=== PATIENT | female | born 1980 | race Caucasian/White ===

== ENCOUNTER 2017-05-04 19:32 | Emergency (ER) | payer OTHER ==
[~2017-05-04] VITALS: Ht 172.7 cm; Wt 70.3 kg
[~2017-05-04 19:32] MED LIST: ADDERALL 10 MG10 MG PO; ADDERALL 20 MG20 MG PO; AMBIEN10 MG PO; ANTACID200 MG PO; ATROVENT HFA12.9 GM; ATROVENT HFA12.9 GM INH; AUGMENTIN 875-1 EACH PO; BENZONATATE100 MG PO; CLINDAMYCIN HC150 MG PO; DOK100 MG PO; DULERA 200 MCG/13 GM; EVEKEO PO; FLOVENT HFA12 G1 INH; FOLIC ACID1 MG PO; LEVAQUIN500 MG PO; LINZESS PO; LITHIUM CARBON300 M2 PO; LORATADINE10 MG PO; METRONIDAZOLE500 MG PO; MIRALAX17 GM PO; NEXIUM40 MG PO; NICODERM CQ1 EAC1 TOP; OMEPRAZOLE40 MG PO; PENTASA500 MG PO; PERCOCET 10-321 EACH PO; PREDNISONE20 MG PO; PROAIR HFA INH8.5 GM; PROMETHAZINE HC25 M1 PO; PROPRANOLOL HCL40 MG PO; PROTONIX40 MG/ML PO; QUETIAPINE FUM100 MG PO; RANITIDINE HCL300 MG PO; RELISTOR PO; SUCRALFATE1 G/10 ML NG; SULFAMETHOXAZO1 EAC1 PO; TRILEPTAL300 MG PO; TYLENOL WITH C1 EACH PO; VALIUM10 MG PO; VALTREX500 MG PO; Z.0.NEXIUM20 MG; ZOFRAN ODT4 MG PO; [UNRECOGNIZED DRUG - OTHER] PO
--- OUTSIDE RECORDS SUMMARY | 2017-05-04 19:35 | XMS REPORT ---
Author Author [facility] Address Unknown Phone Unavailable Care Team Providers Care Member Services Coordinator Name Role Phone DEXTER MCCOY Unavailable Unavailable Problems This patient has no known problems. Allergies, Adverse Reactions, Alerts This patient has no known allergies or adverse reactions. Medications This patient has no known medications. Encounters Start Date/Time End Date/Time Encounter Type Admission Type Attending Clinicians Care Facility Care Department Encounter ID 2017-01-22 03:08:30 2017-01-22 03:08:30 Emergency [facility] [id number] 2017-01-21 23:54:05 2017-01-21 23:54:05 Emergency [facility] [id number] Results Test Description Test Time Test Comments Text Results Atomic Results Result Comments TISSUE EXAM 2017-02-02 12:49:00 Surgical Pathology Report Case: [id number] Authorizing Provider: Cayla Reeves MD Collected: 01/27/2017 1145 Ordering Location: [address] Received: 2016 0742 Service Pathologist: Fidencio Cohen MD Specimens: A) - Stomach, RANDOM STOMACH BX R/O H PYLORI B) - Distal Esophagus, BX, R/O EOSINOPHILLIC ESOPHAGITIS C) - Proximal Esophagus, BX, R/O EOSINOPHILLIC ESOPHAGITIS A. 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 PYLORI BY WARTHIN-STARRY STAINB. ESOPHAGUS, DISTAL, BIOPSY: - SQUAMOUS EPITHELIUM WITH REACTIVE CHANGES, COMPATIBLE WITH MILD REFLUX ESOPHAGITIS - NEGATIVE FOR SIGNIFICANT INCREASE IN INTRAEPITHELIAL EOSINOPHILSC. ESOPHAGUS, PROXIMAL, BIOPSY: - SQUAMOUS EPITHELIUM WITH REACTIVE CHANGES, COMPATIBLE WITH MILD REFLUX ESOPHAGITIS - NEGATIVE FOR SIGNIFICANT INCREASE IN INTRAEPITHELIAL EOSINOPHILS Signing Pathologist Direct Phone Line: [phone] signed by Fidencio Cohen MD on 02/02 at 12:49 [id number] X 3, [id number]/O H PyloriR/O Eosinophillic esophagitisPart A. Random Stomach BiopsyPart B. Distal Esophagus BiopsyPart C. Proximal Esophagus BiopsyThe specimen is received in three parts and in formailin:Part A. Labeled "Random stomach biopsy", consists of 5 fragments of hardy soft tissue ranging in size from 0.1-0.8 cm. Submitted in A1Part B. labeled " Distal Esophagus" Consists of 2 fragments of hardy soft tissue ranging in size from 0.2-0.6 cm. Submitted in B1Part C. Labeled "Proximal esophagus biopsy" consists of 2 fragments of hardy soft tissue ranging in size from 0.1-0.4 cm. Submitted in [id number]. RAD, ABDOMEN/KUB, 1 VIEW AP 2017-01-28 22:44:00 Reason for exam:->eval for foreign body (per patient swallowed ring) FINAL REPORT RAD, ABDOMEN/KUB, 1 VIEW AP CLINICAL INDICATION: eval for foreign body (per patient swallowed ring) COMPARISON: None FINDINGS: An upright view the chest and upright and supine views of the abdomen. Frontal view of the chest reveals no free subdiaphragmatic air. There is no focal consolidation. The costophrenic sulci are clear. Mediastinal contours are unremarkable. There is no bowel dilation. Residual enteric contrast noted in the colon. No radiopaque foreign object is present. Umbilical piercing noted. Regional skeleton is intact. IMPRESSION: No radiopaque foreign object within the chest or abdomen compatible with swallowed ring. Periumbilical piercing. Nonobstructed bowel gas pattern. Unremarkable frontal view of the chest. Signed: JR Reyez Robert MDReport Verified Date/Time: 01/28/2017 22:44:59 Reading Location: [facility] C013Y CT Body Reading Room , CHEST, 2 VIEWS 2017-01-28 18:09:00 Reason for exam:->dyspneaIs the patient ?->Unknown FINAL REPORT TECHNIQUE: Frontal and lateral views of the chest. INDICATION: 36-year-old woman with dyspnea. COMPARISON: None. FINDINGS: LINES/TUBES: None. LUNGS: The lungs are well inflated and clear. Subcentimeter nodular densities in the left midlung zone may represent calcified granulomas or vessels en face. PLEURA: No pleural effusion or pneumothorax. HEART AND MEDIASTINUM: The cardiomediastinal silhouette is within normal limits. SOFT TISSUES AND BONES: Degenerative changes of the visualized spine. IMPRESSION:No acute cardiopulmonary abnormalities. Signed: Uche Davies MDReport Verified Date/Time: 01/28/2017 18:09:57 Reading Location: [facility] C013W Consult Reading Room REHENSIVE METABOLIC PANEL 2017-01-26 23:39:00 TOTAL PROTEIN (BEAKER) (test toqx=086) 6.2 gm/dL 6.0-8.3 ALBUMIN (BEAKER) (test qehj=4147) 3.9 g/dL 3.5-5.0 ALKALINE PHOSPHATASE (BEAKER) (test oslv=206) 88 U/L 40-150 BILIRUBIN TOTAL (BEAKER) (test ffyd=711) 0.3 mg/dL 0.2-1.2 SODIUM (BEAKER) (test xsmc=729) 142 meq/L 136-145 POTASSIUM (BEAKER) (test idfg=880) 2.9 meq/L 3.5-5.1 CHLORIDE (BEAKER) (test eawy=748) 110 meq/L 98-107 CO2 (BEAKER) (test qljp=117) 22 meq/L 22-29 BLOOD UREA NITROGEN (BEAKER) (test jonr=757) 6 mg/dL 7-21 CREATININE (BEAKER) (test ikaq=493) 0.71 mg/dL 0.57-1.25 GLUCOSE RANDOM (BEAKER) (test qzbw=231) 85 mg/dL 70-105 CALCIUM (BEAKER) (test cscl=480) 8.7 mg/dL 8.4-10.2 AST (SGOT) (BEAKER) (test vkte=489) 9 U/L 5-34 ALT (SGPT) (BEAKER) (test kjzy=636) 6 U/L 6-55 EGFR (BEAKER) (test qvnc=8725) 94 mL/min/1.73 sq m ESTIMATED GFR IS NOT ACCURATE CREATININE CLEARANCE IN PREDICTING GLOMERULAR FILTRATION RATE. ESTIMATED GFR IS NOT APPLICABLE FOR DIALYSIS PATIENTS. PT/[id number] 23:23:00* Test Item Value Reference Range Comments PROTIME (BEAKER) (test gyeo=635) 14.7 seconds 11.7-14.7 INR (BEAKER) (test qasi=209) 1.2 <=5.9 PARTIAL THROMBOPLASTIN TIME (BEAKER) (test ajup=460) 30.9 seconds 22.5-36.0 RECOMMENDED COUMADIN/WARFARIN INR THERAPY RANGESSTANDARD DOSE: 2.0 - 3.0 Includes: PROPHYLAXIS for venous thrombosis, systemic embolization; TREATMENT for venous thrombosis and/or pulmonary embolus.HIGH RISK: Target INR is 2.5-3.5 for patients with mechanical heart valves.CBC W/PLT COUNT & AUTO [id number] 23:10:00* Test Item Value Reference Range Comments WHITE BLOOD CELL COUNT (BEAKER) (test jxia=008) 10.5 K/ L 3.5-10.5 RED BLOOD CELL COUNT (BEAKER) (test vxdp=132) 3.58 M/ L 3.93-5.22 HEMOGLOBIN (BEAKER) (test idvw=618) 12.1 GM/DL 11.2-15.7 HEMATOCRIT (BEAKER) (test krzm=916) 35.2 % 34.1-44.9 MEAN CORPUSCULAR VOLUME (BEAKER) (test vfqk=946) 98.3 fL 79.4-94.8 MEAN CORPUSCULAR HEMOGLOBIN (BEAKER) (test ixqb=275) 33.8 pg 25.6-32.2 MEAN CORPUSCULAR HEMOGLOBIN CONC (BEAKER) (test zlzp=571) 34.4 GM/DL 32.2- 35.5 RED CELL DISTRIBUTION WIDTH (BEAKER) (test jgci=156) 12.4 % 11.7-14.4 PLATELET COUNT (BEAKER) (test daze=031) 203 K/CU MM 150-450 MEAN PLATELET VOLUME (BEAKER) (test eklu=329) 12.1 fL 9.4-12.3 NUCLEATED RED BLOOD CELLS (BEAKER) (test gqxl=393) 0 /100 WBC 0-0 NEUTROPHILS RELATIVE PERCENT (BEAKER) (test ciex=211) 50 % LYMPHOCYTES RELATIVE PERCENT (BEAKER) (test dfnx=480) 41 % MONOCYTES RELATIVE PERCENT (BEAKER) (test uzic=281) 6 % EOSINOPHILS RELATIVE PERCENT (BEAKER) (test uzbg=801) 3 % BASOPHILS RELATIVE PERCENT (BEAKER) (test iiis=966) 1 % NEUTROPHILS ABSOLUTE COUNT (BEAKER) (test lgeh=307) 5.24 K/ L 1.56-6.13 LYMPHOCYTES ABSOLUTE COUNT (BEAKER) (test cvfx=471) 4.26 K/ L 1.18-3.74 MONOCYTES ABSOLUTE COUNT (BEAKER) (test robj=853) 0.61 K/ L 0.24-0.36 EOSINOPHILS ABSOLUTE COUNT (BEAKER) (test oalu=778) 0.26 K/ L 0.04-0.36 BASOPHILS ABSOLUTE COUNT (BEAKER) (test rbfs=314) 0.07 K/ L 0.01-0.08 IMMATURE GRANULOCYTES-RELATIVE PERCENT (BEAKER) (test poug=6297) 0 % 0-1 CT, SOFT TISSUE NECK, WO [id number] 20:09:00FINAL REPORT CLINICAL HISTORY: Foreign body ingested, neck painbelieves she may have ingested ring but not sure TECHNIQUE: Contiguous axial images of the neck without contrast. This exam was performed according to the departmental dose optimization program which includes automated exposure control, adjustment of the mA and/or kV according to the patient size, and/or use of an iterative reconstruction technique. COMPARISON: None FINDINGS: The aerodigestive tract is patent without evidence of a radiodense foreign body. There is no definitive noncontrast CT evidence of abnormal mass, enlarged lymphadenopathy, or fluid collection in the soft tissues of the neck. Scattered subcentimeter lymph nodes are seen in the bilateral jugulodigastric and posterior triangle regions. The salivary glands are symmetrical appearing. The visualized lung apices are clear. IMPRESSION: No evidence of radiodense foreign body in the neck. Signed: Deanna Munoz MDReport Verified Date/Time: 01/26/2017 20:09:33 Reading Location : [facility] Radiology Reading Room , NECK, SOFT [id number] 16:07: 00Reason for exam:->SHORTNESS OF BREATH, globus sensationFINAL REPORT EXAM: AP and lateral views of the soft tissue neck HISTORY PROVIDED : Shortness of breath, globus sensation COMPARISON: None available IMPRESSION: There is straightening of the normal cervical lordosis. No gross evidence of fracture. The prevertebral soft tissues are within normal limits. No significant soft tissue abnormality. The visualized lung apices are grossly normal. Signed: Kell Jalloh Verified Date/Time: 01/26/2017 16: 07:11 Reading Location: [facility] Mammo Reading Room
[2017-05-04] MEDS ORDERED: ONDANSETRON HCL INJ 2 MG/ML VIAL IV STA (20:29)
[2017-05-04] MEDS ORDERED: PANTOPRAZOLE 40 MG 10ML VIAL IV STA (20:30)
[2017-05-04] MEDS ORDERED: SODIUM CHLORIDE 0.9% 1000ML 1,000 ML IV ONE (20:30)
[2017-05-04 20:54] LABS: BASOPHILS # (AUTO) 0.1 (0.0-0.1); BASOPHILS % 0.6 % (0.0-1.0); EOSINOPHILS # (AUTO) 0.2 (0.0-0.4); EOSINOPHILS % 1.8 % (0.0-6.0); HEMATOCRIT 43.2 % (34.2-44.1); HEMOGLOBIN 15.4 g/dL (12.0-16.0); LYMPHOCYTES # (AUTO) 3.1 (1.0-3.2); MEAN CORPUSCULAR HEMOGLOBIN 34.1 pg (28-32); MEAN CORPUSCULAR HGB CONC 35.6 g/dL (31-35); MEAN CORPUSCULAR VOLUME 95.8 fL (81-99); MONOCYTES # (AUTO) 0.4 (0.2-0.8); MONOCYTES % 3.4 % (4.4-11.3); NEUTROPHILS # (AUTO) 7.8 (2.1-6.9); NEUTROPHILS % 66.9 % (38.7-80.0); PLATELET COUNT 250 x10e3/uL (140-360); RED BLOOD COUNT 4.51 x10e6/uL (3.6-5.1); RED CELL DISTRIBUTION WIDTH 11.9 % (11.7-14.4)
[2017-05-04 21:12] LABS: ALANINE AMINOTRANSFERASE 13 IU/L (0-55); ALBUMIN/GLOBULIN RATIO 1.4 (0.8-2.0); ALKALINE PHOSPHATASE 96 IU/L (40-150); AMYLASE 88 U/L (25-125); ANION GAP 17.1 mmol/L (8-16); BLOOD UREA NITROGEN 10 mg/dL (7-26); BUN/CREATININE RATIO 12 (6-25); CALCIUM 10.5 mg/dL (8.4-10.2); CARBON DIOXIDE 25 mmol/L (22-29); CHLORIDE 101 mmol/L (98-107); CREATINE KINASE 52 IU/L (29-168); CREATININE, SERUM 0.85 mg/dL (0.57-1.11); EST GLOMERULAR FILTRATION RATE > 60 ML/MIN (60-); GLUCOSE 97 mg/dL (74-118); LIPASE 20 U/L (8-78); POTASSIUM 4.1 mmol/L (3.5-5.1); SODIUM 139 mmol/L (136-145)
--- NOTE | 2017-05-04 22:03 | Diagnostic Imaging Report ---
EXAM: CHEST SINGLE (PORTABLE), AP 1 view INDICATION: Severe abdominal pain COMPARISON: AP view of the chest August 09, 2015 FINDINGS: LINES/TUBES: None LUNGS: No consolidations or edema. PLEURA: No effusions or pneumothorax. HEART AND MEDIASTINUM: Normal size and contour. BONES AND SOFT TISSUES: No acute findings. IMPRESSION: No acute thoracic abnormality. Signed by: Dr. Yue Subramanian M.D. on 05/04/2017 10:00 PM
[2017-05-04 22:13] LABS: BILIRUBIN,URINE NEGATIVE (NEGATIVE); CLARITY,URINE SL CLOUDY (CLEAR); COLOR,URINE YELLOW (YELLOW); KETONES,URINE NEGATIVE (NEGATIVE); LEUKOCYTE ESTERASE ,URINE NEGATIVE (NEGATIVE); NITRITE,URINE NEGATIVE (NEGATIVE); PROTEIN,URINE DIPSTICK NEGATIVE (NEGATIVE); URINE UROBILINOGEN 0.2 mg/dL (0.2 - 1)
[2017-05-04 22:16] LABS: AMPHETAMINES SCREEN,URINE NEGATIVE (NEGATIVE); BENZODIAZEPINES SCREEN,URINE NEGATIVE (NEGATIVE); PHENCYCLIDINE SCREEN,URINE NEGATIVE (NEGATIVE)
[2017-05-04 22:37] LABS: BACTERIA,URINE RARE /HPF; EPITHELIAL CELLS,URINE FEW /LPF; RBC,URINE 0-5 /HPF (0-5); WBC,URINE (MAN) 0-5 /HPF (0-5)
[2017-05-04] MEDS ORDERED: SODIUM CHLORIDE 0.9% 50ML 50 ML ONE (22:55)
[2017-05-04] MEDS ORDERED: IOPAMIDOL 370 MG/ML 200 ML INFUS..BTL INJ ONE (22:55)
--- NOTE | 2017-05-04 23:06 | Diagnostic Imaging Report ---
EXAM: CT ABDOMEN AND PELVIS with IV CONTRAST DATE: 05/04/2017 8:23 PM Time stamp on Exam: 2203 hours INDICATION: Upper abdominal pain, vomiting COMPARISON: CT of the abdomen and pelvis September 12, 2016 TECHNIQUE: The abdomen and pelvis were scanned using a multidetector helical scanner. Coronal and sagittal reformations were obtained. Routine protocol performed. IV Contrast: 100 cc Isovue-370 Oral Contrast: Water CTDIvol has been reviewed. It is below the limits set by the Radiation Protocol Committee (RPC). FINDINGS: LOWER THORAX: Granuloma in the lingula. No consolidations. LIVER: No masses BILIARY: The gallbladder is unremarkable. No ductal dilation. SPLEEN: No masses PANCREAS: No masses ADRENALS: No nodules KIDNEYS: Symmetric perfusion. No enhancing masses. No hydronephrosis. GI TRACT: No distention, wall thickening or evidence of obstruction. No evidence of appendicitis. VESSELS: Unremarkable PERITONEUM/RETROPERITONEUM: No free air or fluid LYMPH NODES: No lymphadenopathy REPRODUCTIVE ORGANS: The uterus and ovaries are not visualized. BLADDER: Unremarkable SOFT TISSUES: Unremarkable BONES: Stable focal sclerosis in the sacrum, likely a bone island. IMPRESSION: No CT findings to explain patient's symptoms. No bowel obstruction. Signed by: Dr. Yue Subramanian M.D. on 05/04/2017 11:03 PM
[2017-05-05 00:17] VITALS: BP 132/87
== END 2017-05-05 00:45 | disposition home or self-care (01) ==
LOC: ER 19:32
DX: R10.13 Epigastric pain (principal); R11.2 Nausea with vomiting, unspecified; J45.909 Unspecified asthma, uncomplicated
CPT/HCPCS: 36415; 71045; 74177; 80053; 80307; 81001; 82150; 82550; 82553; 83690; 84484; 84702; 85025; 99284; J2405; Q9967

== ENCOUNTER 2018-01-25 16:32 | Emergency (ER) | payer OTHER ==
[~2018-01-25] VITALS: Ht 172.7 cm; Wt 59.9 kg
--- OUTSIDE RECORDS SUMMARY | 2018-01-25 16:35 | XMS REPORT | Clinical Summary ---
Author Author DIANA [facility] Address Unknown Phone Unavailable Care Team Providers Care Black [place] Worker Name Role Phone Sharpless PCP Allergies No Known Allergies Medications End Date Status Medication Sig Dispensed Refills Start Date Active esomeprazole (NEXIUM) 40 Take 40 mg by 0 MG capsule mouth 2 (two) times daily. Active diazepam (VALIUM) 10 MG Take 20 mg by 0 tablet mouth 3 (three) times daily. Active loratadine (CLARITIN) 10 Take 10 mg by 0 mg tablet mouth daily. Active QUEtiapine (SEROQUEL) 300 Take 300 mg 0 MG tablet by mouth 2 (two) times daily. Active valGANciclovir (VALCYTE) Take 450 mg 0 450 mg tablet by mouth daily. Active topiramate (TOPAMAX) 100 Take 100 mg 0 MG tablet by mouth daily Bed time . Active ipratropium (ATROVENT Inhale 2 0 HFA) 17 mcg/actuation puffs by inhaler mouth via inhaler 4 (four) times daily. Active albuterol (ACCUNEB) 1.25 Take 1 ampule 0 mg/3 mL nebulizer by solution nebulization every 6 (six) hours as needed for Wheezing. Active fluticasone (FLOVENT HFA) Inhale 1 puff 0 110 mcg/actuation by mouth via inhalerIndications: inhaler 2 Maintenance Therapy for (two) times Asthma daily. 08/05/2017 Discontinued propranolol (INDERAL) 40 Take 40 mg by 0 MG tablet mouth 4 (four) times daily. 07/16/2017 Discontinued HYDROcodone-acetaminophen Take 1 tablet 0 (LORCET 10-650) 10-650 mg by mouth 4 per tablet (four) times daily. 07/26/2017 acetaminophen-codeine Take 1-2 20 tablet 0 (TYLENOL #3) 300-30 mg tablets by 8 per tablet mouth every 4 (four) hours as needed for Pain for up to 10 days. Max Daily Amount: 12 tablets 08/12/2017 hyoscyamine (LEVSIN/SL) Take 1 tablet 15 tablet 0 0.125 mg SL tablet (125 mcg 8 total) by mouth every 6 (six) hours as needed for up to 7 days. 08/06/2017 Discontinued propranolol (INDERAL) 40 Take 1 tablet 60 tablet 0 MG tablet (40 mg total) 8 by mouth 2 (two) times daily for 30 days. Active Problems Problem Noted Date Dysphagia, unspecified type 01/26/2017 Abdominal pain, other specified site 07/05/2013 Pulmonary nodule 07/05/2013 Rectal mass 07/05/2013 Overview: By OSH CT scan, unavailable Panic disorder 07/05/2013 Encounters Care Team Description Date Type Specialty Jono Edwards AA 08/04/2017 Anesthesia Event Hillary Almazan MD UPPER ENDOSCOPY 08/04/2017 Surgery Jann Gillette MD Jafar, Jorge Ridley MD Dysphagia, unspecified type (Primary Dx); Epigastric abdominal pain; History of anxiety; History of bipolar disorder; History of gastroesophageal reflux (GERD) 08/03/2017 Emergency General Internal Medicine - 08/06/2017 Juanita Lara MD Abdominal pain, unspecified abdominal location (Primary Dx); Esophagitis 07/15/2017 Emergency Emergency Medicine - 07/16/2017 Sosa Sandy MD 01/27/2017 Anesthesia Gastroenterology Event Cayla Reeves MD UPPER ENDOSCOPY,BIOPSY 01/27/2017 Surgery Gastroenterology TalcoWinston MD Ibe, MD Kajal Downey Sonal Muralinath, MD Dysphagia, unspecified type (Primary Dx); Globus sensation; Panic disorder 01/26/2017 Hospital General Internal Medicine - Encounter 01/29/2017 01/26/2017 Orders Only General Internal Medicine after 01/24/2017 Social History Date Tobacco Use Types Packs/Day Years Used Former Smoker 0.25 1 Smokeless Tobacco: Never Used Tobacco Cessation: Counseling Given: Yes Alcohol Use Drinks/Week oz/Week Comments Yes Only on holidays Sex Assigned at Date Recorded Not on file Industry Job Start Date Occupation Not on file Not on file Not on file Travel End Travel History Travel Start No recent travel history available. Last Filed Vital Signs Time Taken Vital Sign Reading 08/06/2017 7:25 AM CDT Blood Pressure 98/57 08/06/2017 8:10 AM CDT Pulse 75 08/06/2017 7:25 AM CDT Temperature 36.5 C (97.7 F) 08/06/2017 8:10 AM CDT Respiratory Rate 16 08/06/2017 8:10 AM CDT Oxygen Saturation 98% 08/05/2017 8:24 AM CDT Inhaled Oxygen 21% Concentration 08/03/2017 9:54 AM CDT Weight 66.2 kg (146 lb) 08/03/2017 9:54 AM CDT Height 172.7 cm (5' 8") 08/03/2017 9:54 AM CDT Body Mass Index 22.2 Plan of Treatment Not on file Procedures Comments Procedure Name Priority Date/Time Associated Diagnosis CBC W/PLT COUNT & AUTO Routine 08/05/2017 DIFFERENTIAL 6:27 AM CDT BASIC METABOLIC PANEL (7) Routine 08/05/2017 6:27 AM CDT CBC W/PLT COUNT & AUTO Routine 08/05/2017 DIFFERENTIAL 6:27 AM CDT TISSUE EXAM AP Routine 08/04/2017 8:17 AM CDT UPPER ENDOSCOPY 08/04/2017 Dysphagia, unspecified 7:30 AM CDT type CBC W/PLT COUNT & AUTO STAT 08/04/2017 DIFFERENTIAL 4:43 AM CDT APTT Routine 08/04/2017 4:43 AM CDT PROTHROMBIN TIME/INR Routine 08/04/2017 4:43 AM CDT CBC W/PLT COUNT & AUTO STAT 08/04/2017 DIFFERENTIAL 4:43 AM CDT HEPATIC FUNCTION PANEL STAT 08/04/2017 4:43 AM CDT BASIC METABOLIC PANEL (7) STAT 08/04/2017 4:43 AM CDT CBC W/PLT COUNT & AUTO STAT 08/03/2017 DIFFERENTIAL 10:08 AM CDT RAPID DRUG SCREEN, URINE STAT 08/03/2017 10:08 AM CDT LIPASE STAT 08/03/2017 10:08 AM CDT HEPATIC FUNCTION PANEL STAT 08/03/2017 10:08 AM CDT BASIC METABOLIC PANEL (7) STAT 08/03/2017 10:08 AM CDT CBC W/PLT COUNT & AUTO STAT 08/03/2017 DIFFERENTIAL 10:08 AM CDT URINALYSIS W/ REFLEX STAT 08/03/2017 URINE CULTURE 10:00 AM CDT CBC W/PLT COUNT & AUTO STAT 07/15/2017 DIFFERENTIAL 11:50 PM CDT RAPID DRUG SCREEN, URINE STAT 07/15/2017 11:50 PM CDT SCREEN, URINE STAT 07/15/2017 11:50 PM CDT URINALYSIS W/ MICROSCOPIC STAT 07/15/2017 11:50 PM CDT LIPASE STAT 07/15/2017 11:50 PM CDT HEPATIC FUNCTION PANEL STAT 07/15/2017 11:50 PM CDT CBC W/PLT COUNT & AUTO STAT 07/15/2017 DIFFERENTIAL 11:50 PM CDT XR ABDOMEN 1 VIEW Routine 01/28/2017 9:20 PM PLANT OPERATOR/SHIFT SUPERVISOR XR CHEST 2 VIEWS STAT 01/28/2017 5:45 PM PLANT OPERATOR/SHIFT SUPERVISOR REPORT OF PROCEDURE - 01/27/2017 ENDOSCOPY URL 12:01 PM PLANT OPERATOR/SHIFT SUPERVISOR TISSUE EXAM AP Routine 01/27/2017 11:45 AM PLANT OPERATOR/SHIFT SUPERVISOR UPPER ENDOSCOPY,BIOPSY 01/27/2017 DYSPHAGIA 11:00 AM PLANT OPERATOR/SHIFT SUPERVISOR Special Needs EGD WITH ANES CBC W/PLT COUNT & AUTO STAT 01/26/2017 DIFFERENTIAL 10:39 PM PLANT OPERATOR/SHIFT SUPERVISOR PT/APTT STAT 01/26/2017 10:39 PM PLANT OPERATOR/SHIFT SUPERVISOR COMPREHENSIVE METABOLIC STAT 01/26/2017 PANEL 10:39 PM PLANT OPERATOR/SHIFT SUPERVISOR CBC W/PLT COUNT & AUTO STAT 01/26/2017 DIFFERENTIAL 10:39 PM PLANT OPERATOR/SHIFT SUPERVISOR CT SOFT TISSUE NECK STAT 01/26/2017 WITHOUT IV CONTRAST 7:48 PM PLANT OPERATOR/SHIFT SUPERVISOR XR NECK SOFT TISSUE STAT 01/26/2017 3:45 PM PLANT OPERATOR/SHIFT SUPERVISOR ECG 12-LEAD Routine 01/26/2017 1:37 PM PLANT OPERATOR/SHIFT SUPERVISOR Procedure Note - Interface, External Ris In - 01/26/2017 2:12 PM PLANT OPERATOR/SHIFT SUPERVISOR Ventricula r Rate 81 BPM Atrial Rate 81 BPM P-R Interval 128 ms QRS Duration 78 ms Q-T Interval 364 ms QTC Calculatio n(Bazett) 422 ms P [place] 74 degrees R [place] 67 degrees T [place] 58 degrees Normal sinus rhythm Right atrial enlargemen t Borderline ECG When compared with ECG of 4 17:54, No significan t change was found ECG 12-LEAD STAT 01/26/2017 1:37 PM PLANT OPERATOR/SHIFT SUPERVISOR after 01/24/2017 Results * CBC with platelet count + automated diff (08/05/2017 6:27 AM CDT) Only the most recent of 5 results within the time period is included. WBC 7.1 4.0 - 10.0 K/L [facility] RBC 4.10 4.00 - 5.00 M/L [facility] Hemoglobin 13.7 12.0 - 15.0 GM/DL [facility] Hematocrit 40.9 36.0 - 45.0 % [facility] MCV 99.8 (H) 82.0 - 99.0 fL [facility] MCH 33.4 (H) 27.0 - 33.0 pg [facility] MCHC 33.5 32.0 - 36.0 GM/DL [facility] RDW 13.4 10.3 - 14.2 % [facility] Platelets 162 150 - 430 K/CU MM [facility] MPV 11.1 (H) 6.5 - 10.5 fL [facility] nRBC 0 0 - 0 /100 WBC [facility] % Neutros 59 % [facility] % Lymphs 30 % [facility] % Monos 5 % [facility] % Eos 5 % [facility] % Baso 1 % [facility] # Neutros 4.20 1.80 - 8.00 K/L [facility] # Lymphs 2.10 1.48 - 4.50 K/L [facility] # Monos 0.40 0.00 - 1.30 K/L [facility] # Eos 0.40 0.00 - 0.50 K/L [facility] # Baso 0.10 0.00 - 0.20 K/L [facility] Specimen Blood Performing Organization Address City/[facility]/Zipcode Phone Number [facility] [address] [place], [place] [phone] * Basic Metabolic Panel (08/05/2017 6:27 AM CDT) Only the most recent of 3 results within the time period is included. Sodium 142 135 - 148 meq/L [facility] Potassium 3.7 3.6 - 5.5 meq/L [facility] Chloride 108 (H) 98 - 106 meq/L [facility] CO2 27 20 - 29 meq/L [facility] BUN 4 (L) 10 - 26 mg/dL [facility] Creatinine 0.87 0.50 - 1.20 mg/dL [facility] Glucose 83 70 - 110 mg/dL [facility] Calcium 9.0 8.5 - 10.5 mg/dL [facility] EGFR 74Comment: ESTIMATED GFR IS mL/min/1.73 sq m [facility] NOT ACCURATE CREATININE LAB[facility]ATORY CLEARANCE IN PREDICTING GLOMERULAR FILTRATION RATE. ESTIMATED GFR IS NOT APPLICABLE FOR DIALYSIS PATIENTS. Specimen Blood Performing Organization Address City/[facility]/Zipcode Phone Number [facility] [address] [place] [address] * Tissue Exam (08/04/2017 8:17 AM CDT) Only the most recent of 2 results within the time period is included. Case Report Surgical Pathology [facility] Report LABORATORY Case: [id number] Authorizing Provider:Hillary Almazan MD Collected: 08/04/2017 0817 Ordering Location: [address] Med/SurgRe ceived: 08/04/2017 1136 Pathologist: Deloris Iqbal MD Specimens: A) - Biopsy, Gastric B) - Biopsy, Esophagus, lower DIAGNOSIS A. STOMACH, BIOPSY: [facility] - ANTRAL MUCOSA WITH LABORATORY CHRONIC, FOCALLY ACTIVE GASTRITIS - NO INTESTINAL METAPLASIA, DYSPLASIA OR MALIGNANCY SEEN - NEGATIVE FOR H. PYLORI ORGANISMS B. ESOPHAGUS, LOWER, BIOPSY: - SQUAMOUS/COLUMNAR MUCOSA WITH MILD REFLUX ESOPHAGITIS - NO INTESTINAL METAPLASIA, DYSPLASIA OR MALIGNANCY SEEN Signing Pathologist Direct Phone Line: [phone] CPT Code(s) MG/ew [facility] [address] x2 LABORATORY [address] CLINICAL HISTORY Dysphagia [facility] SPECIMEN SOURCE A. Biopsy gastric. B. Biopsy [facility] esophagus lower LABORATORY GROSS DESCRIPTION Specimen A is received in [facility] fixative and designated as LABORATORY "biopsy gastric", consists of three pink-hardy tissue fragments ranging in size from 0.2 to 0.3 cm in greatest dimension. All tissue fragments are submitted into A1. Specimen B is received in fixative and designated as "biopsy esophagus", consists of three white-hardy tissue fragments ranging in size from 0.3 to 0.4 cm in greatest dimension. All tissue fragments are submitted into B1. MG/ew MICROSCOPIC DESCRIPTION A-B. Performed [facility] SPECIAL STUDIES The following special studies [facility] were performed on this case LABORATORY and the interpretation is incorporated in the diagnostic report above: Trev Meza: Negative for H. Pylori organisms Gross assessment was [facility] performed at [facility] Department of LABORATORY Pathology, [address] [place] [address], Technical component was [facility] performed at [facility] Department of LABORATORY Pathology, [address] [place] [address], Professional component [facility] was performed at [facility] Department of LABORATORY Pathology, [address] [place] [address], Specimen Tissue - Biopsy, Gastric Narrative Performed At Performing Organization Address City/State/Zipcode Phone Number [facility] [address] [place] [address] * aPTT (08/04/2017 4:43 AM CDT) PTT 28.0 23.0 - 35.0 sec [facility] Specimen Blood - Arm, Left Narrative Performed At Final Information (Auto Output) [facility] Performing Organization Address [facility] Phone Number [facility] [address] [place] [address] * Prothrombin time/INR (08/04/2017 4:43 AM CDT) Protime 11.9 9.3 - 12.0 sec [facility] INR 1.1 <=5.9 [facility] Specimen Blood - Arm, Left Narrative Performed At RECOMMENDED COUMADIN/WARFARIN INR THERAPY RANGES [facility] STANDARD DOSE: 2.0 - 3.0 Includes: PROPHYLAXIS for venous thrombosis, LABORATORY systemic embolization; TREATMENT for venous thrombosis and/or pulmonary embolus. HIGH RISK: Target INR is 2.5-3.5 for patients with mechanical heart valves. Final Information (Auto Output) Final Information (Auto Output) Performing Organization Address [facility] Phone Number [facility] [address] [place] [phone] * Hepatic function panel (08/04/2017 4:43 AM CDT) Only the most recent of 3 results within the time period is included. Protein, Total 5.8 (L) 6.0 - 8.5 gm/dL [facility] Albumin 3.6 3.5 - 5.0 g/dL [facility] Total Bilirubin 0.4 0.1 - 1.2 mg/dL [facility] Bilirubin, Direct 0.1 0.0 - 0.4 mg/dL [facility] Alkaline Phosphatase 59 30 - 115 U/L [facility] AST 12 5 - 40 U/L [facility] ALT 14 5 - 50 U/L [facility] Specimen Blood - Arm, Left Performing Organization Address [facility] Phone Number [place] [phone] [place], [place] [phone] * Rapid drug screen, urine (08/03/2017 10:08 AM CDT) Only the most recent of 2 results within the time period is included. Barbiturate Screen Negative Negative [facility] Benzodiazepine Screen Negative Negative [facility] Cocaine (Metab.) Screen Negative Negative [facility] Methadone Screen Negative Negative [facility] Opiate Screen Negative Negative [facility] Cannabinoid Screen Positive (A) Negative [facility] Amph/Methamph Screen Negative Negative [facility] Phencyclidine Screen Negative Negative [facility] Specimen Urine - Urine, Clean Catch Narrative Performed At [facility]. [facility] Cocaine 300 ng/mL LABORATORY Xincbtyiyxm52 ng/mL Bukjcfkxofajtu057 ng/mL Barbiturate 200 ng/mL Hbgeibaeemtxt09 ng/mL Orkgwl996 ng/mL Methadone 300 ng/mL Amphetamine/ 1000 ng/mL Methamphetamine This assay provides an unconfirmed qualitative test result for the clinical management of patients in emergency situations. Chain of custody not maintained. Some jkea-eef-qucuesp medications, as well as adulterants, may cause inaccurate results. Clinical correlation should be applied. A more comprehensive drug screen or confirmation of a detected drug may be performed upon request. Performing Organization Address [facility] Phone Number [address] [phone] * Lipase (08/03/2017 10:08 AM CDT) Only the most recent of 2 results within the time period is included. Lipase 10 6 - 51 U/L [facility] Specimen Blood - Arm, Right Performing Organization Address [facility] Phone Number [place] [phone] [place], [place] [phone] * Urinalysis w/Microscopic + Reflex to Culture (08/03/2017 10:00 AM CDT) Color, UA Yellow [facility] Clarity, UA Clear [facility] Specific [place], UA <=1.005 1.001 - 1.035 [facility] pH, UA 6.5 5.0 - 8.0 [facility] Protein, UA Negative Negative [facility] Glucose, UA Negative Negative [facility] Ketones, UA Negative Negative [facility] Bilirubin, UA Negative Negative [facility] Blood, UA Negative Negative [facility] Nitrite, UA Negative Negative [facility] Leukocytes, UA Negative Negative [facility] Urobilinogen, UA 0.2 0.2 - 1.0 mg/dL [facility] Bacteria, UA Few [facility] RBC, UA <5 /HPF [facility] WBC, UA <5 /HPF [facility] SQUAMOUS EPITHELIAL 10-20 /HPF [facility] Specimen Source [facility] Specimen Urine - Urine, Clean Catch Performing Organization Address [facility] Phone Number [facility] [address] [place], [place] [phone] * screen, urine (07/15/2017 11:50 PM CDT) Preg Test, Ur Negative [facility] Specimen Urine Performing Organization Address [facility] Phone Number [facility] [address] [place] [phone] * Urinalysis w/Microscopic (07/15/2017 11:50 PM CDT) Color, UA Yellow [facility] Clarity, UA Clear [facility] Specific [place], UA 1.020 1.001 - 1.035 [facility] pH, UA 6.0 5.0 - 8.0 [facility] Protein, UA Negative Negative [facility] Glucose, UA Negative Negative [facility] Ketones, UA Trace (A) Negative [facility] Bilirubin, UA Negative Negative [facility] Blood, UA Negative Negative [facility] Nitrite, UA Negative Negative [facility] Leukocytes, UA Negative Negative [facility] Urobilinogen, UA 0.2 0.2 - 1.0 mg/dL [facility] Bacteria, UA Occasional [facility] RBC, UA <5 /HPF [facility] WBC, UA <5 /HPF [facility] SQUAMOUS EPITHELIAL <5 /HPF [facility] Specimen Source [facility] Specimen Urine Performing Organization Address [facility] Phone Number [address] [phone] * XR abdomen / KUB 1 view (01/28/2017 9:20 PM PLANT OPERATOR/SHIFT SUPERVISOR) Narrative Performed At FINAL REPORT [facility] RAD, ABDOMEN/KUB, 1 VIEW AP CLINICAL INDICATION: [...] of the chest. Signed: JR Reyez Robert MD Report Verified Date/Time:01/28/2017 22:44:59 Reading Location: [address] Body Reading Room Procedure Note Interface, External Ris In - 02/19/2017 1:11 PM PLANT OPERATOR/SHIFT SUPERVISOR FINAL REPORT RAD, ABDOMEN/KUB, 1 VIEW AP [...] of the chest. Signed: JR Reyez Robert MD Report Verified Date/Time: 01/28/2017 22:44:59 Reading Location: [facility] C0Y CT Body Reading Room Performing Organization Address City/State/Zipcode Phone Number [facility] * XR chest 2 views (01/28/2017 5:45 PM PLANT OPERATOR/SHIFT SUPERVISOR) Narrative Performed At FINAL REPORT [facility] TECHNIQUE: Frontal and lateral views of the [...] BONES: Degenerative changes of the visualized spine. IMPRESSION: No acute cardiopulmonary abnormalities. Signed: Uche Day MD Report Verified Date/Time:01/28/2017 18:09:57 Reading Location: [facility] C013 Consult Reading Room Procedure Note Interface, External Ris In - 01/28/2017 6:12 PM PLANT OPERATOR/SHIFT SUPERVISOR FINAL REPORT TECHNIQUE: Frontal and lateral views [...] BONES: Degenerative changes of the visualized spine. IMPRESSION: No acute cardiopulmonary abnormalities. Signed: Uche Day MD Report Verified Date/Time: 01/28/2017 18:09:57 Reading Location: [facility] C0[facility] Consult Reading Room Performing Organization Address City/[facility] Phone Number [facility] * REPORT OF PROCEDURE - ENDOSCOPY URL (01/27/2017 12:01 PM PLANT OPERATOR/SHIFT SUPERVISOR) Narrative Performed At * PT/aPTT (01/26/2017 10:39 PM PLANT OPERATOR/SHIFT SUPERVISOR) Protime 14.7 11.7 - 14.7 seconds [facility] INR 1.2 <=5.9 [facility] PTT 30.9 22.5 - 36.0 seconds [facility] Specimen Blood - Arm, Right Narrative Performed At RECOMMENDED COUMADIN/WARFARIN INR THERAPY RANGES [facility] STANDARD DOSE: 2.0 - 3.0 Includes: PROPHYLAXIS for venous thrombosis, [facility] systemic embolization; TREATMENT for venous thrombosis and/or pulmonary embolus. HIGH RISK: Target INR is 2.5-3.5 for patients with mechanical heart valves. Performing Organization Address [facility]/Zipcode Phone Number [facility] [address] [place] [address] [facility] * Comprehensive metabolic panel (01/26/2017 10:39 PM PLANT OPERATOR/SHIFT SUPERVISOR) Protein, Total 6.2 6.0 - 8.3 gm/dL [facility] Albumin 3.9 3.5 - 5.0 g/dL [facility] Alkaline Phosphatase 88 40 - 150 U/L [facility] Total Bilirubin 0.3 0.2 - 1.2 mg/dL [facility] Sodium 142 136 - 145 meq/L [facility] Potassium 2.9 (L) 3.5 - 5.1 meq/L [facility] Chloride 110 (H) 98 - 107 meq/L [facility] CO2 22 22 - 29 meq/L [facility] BUN 6 (L) 7 - 21 mg/dL [facility] Creatinine 0.71 0.57 - 1.25 mg/dL [facility] Glucose 85 70 - 105 mg/dL [facility] Calcium 8.7 8.4 - 10.2 mg/dL [facility] AST 9 5 - 34 U/L [facility] ALT 6 6 - 55 U/L [facility] EGFR 94Comment: ESTIMATED GFR IS mL/min/1.73 sq m [facility] NOT ACCURATE CREATININE [facility] CLEARANCE IN PREDICTING GLOMERULAR FILTRATION RATE. ESTIMATED GFR IS NOT APPLICABLE FOR DIALYSIS PATIENTS. Specimen Blood - Arm, Right Performing Organization Address City/State/Zipcode Phone Number [facility] [address] [place] [address] [facility] * CT neck soft tissue without IV contrast (01/26/2017 7:48 PM PLANT OPERATOR/SHIFT SUPERVISOR) Narrative Performed At FINAL REPORT [facility] CLINICAL HISTORY: Foreign body ingested, neck pain believes she may have ingested ring but not [...] foreign body in the neck. Signed: Deanna Hoover MD Report Verified Date/Time:01/26/2017 20:09:33 Reading Location: [facility] Radiology Reading Room Procedure Note Interface, External Ris In - 01/26/2017 8:11 PM PLANT OPERATOR/SHIFT SUPERVISOR FINAL REPORT CLINICAL HISTORY: Foreign body ingested, neck pain believes she may have ingested ring but not [...] foreign body in the neck. Signed: Deanna Hoover MD Report Verified Date/Time: 01/26/2017 20:09:33 Reading Location: [facility] Radiology Reading Room Performing Organization Address City/State/Zipcode Phone Number GE RIS * XR neck soft tissue (01/26/2017 3:45 PM PLANT OPERATOR/SHIFT SUPERVISOR) Narrative Performed At FINAL REPORT GE RIS EXAM: AP and lateral views of the soft tissue neck HISTORY PROVIDED: Shortness of breath, globus sensation COMPARISON: None available IMPRESSION: There is straightening of the normal cervical lordosis. No gross evidence of fracture. The prevertebral soft tissues are within normal limits. No significant soft tissue abnormality. The visualized lung apices are grossly normal. Signed: Kell Roth MD Report Verified Date/Time:01/26/2017 16:07:11 Reading Location: [facility] Reading Room Procedure Note Interface, External Ris In - 01/26/2017 4:09 PM PLANT OPERATOR/SHIFT SUPERVISOR FINAL REPORT EXAM: AP and lateral views of the soft tissue neck HISTORY PROVIDED: Shortness of breath, globus sensation COMPARISON: None available IMPRESSION: There is straightening of the normal cervical lordosis. No gross evidence of fracture. The prevertebral soft tissues are within normal limits. No significant soft tissue abnormality. The visualized lung apices are grossly normal. Signed: Kell Roth MD Report Verified Date/Time: 01/26/2017 16:07:11 Reading Location: [facility] Mammo Reading Room Performing Organization Address City/State/Zipcode Phone Number GE RIS * ECG 12 lead (01/26/2017 1:37 PM PLANT OPERATOR/SHIFT SUPERVISOR) Narrative Performed At Ventricular Rate 81 BPM GE MUSE Atrial Rate 81 BPM P-R Interval 128 ms QRS Duration 78 ms Q-T Interval 364 ms QTC Calculation(Bazett) 422 ms P [place] 74 degrees R [place] 67 degrees T [place] 58 degrees Normal sinus rhythm Right atrial enlargement Borderline ECG When compared with ECG of 04-JUL-2013 17:54, There are now criteria for right atrial enlargement Confirmed by MD BLANCA, [facility] ([id number]) on 01/27/2017 6:06:44 AM Procedure Note Interface, External Ris In - 01/27/2017 6:06 AM PLANT OPERATOR/SHIFT SUPERVISOR Ventricular Rate 81 BPM Atrial Rate 81 BPM P-R Interval 128 ms QRS Duration 78 ms Q-T Interval 364 ms QTC Calculation(Bazett) 422 ms P [place] 74 degrees R [place] 67 degrees T [place] 58 degrees Normal sinus rhythm Right atrial enlargement Borderline ECG When compared with ECG of 04-JUL-2013 17:54, There are now criteria for right atrial enlargement Confirmed by MD BLANCA, LUZMA ([id number]) on 01/27/2017 6:06:44 AM Performing Organization Address City/State/Zipcode Phone Number GE MUSE after 01/24/2017 Insurance Payer Benefit Subscriber ID Type Phone Address Plan / Group MEDICAID - MEDICAID MGD [facility] xxxxxxxxx Medicaid CARE COMM STAR Contracted PLAN Advance Directives For more information, please contact: [facility] [address] [place] [address] Date Inactivated Comments Code Status Date Activated 08/06/2017 3:26 PM Full Code 08/03/2017 1:10 PM This code status was determined by: Patient 01/29/2017 8:44 PM Full Code 01/27/2017 5:15 AM This code status was determined by: Patient 07/05/2013 2:47 PM All possible means of support, including: cardiac massage, mechanical ventilation, and defibrillation will be used to support life. Code ONE 07/04/2013 7:39 PM
[2018-01-25 17:38] LABS: AMPHETAMINES SCREEN,URINE NEGATIVE (NEGATIVE); BENZODIAZEPINES SCREEN,URINE NEGATIVE (NEGATIVE); BILIRUBIN,URINE NEGATIVE (NEGATIVE); CLARITY,URINE CLEAR (CLEAR); COLOR,URINE YELLOW (YELLOW); KETONES,URINE NEGATIVE (NEGATIVE); LEUKOCYTE ESTERASE ,URINE NEGATIVE (NEGATIVE); NITRITE,URINE NEGATIVE (NEGATIVE); PHENCYCLIDINE SCREEN,URINE NEGATIVE (NEGATIVE); PREGNANCY TEST, URINE NEGATIVE (NEGATIVE); PROTEIN,URINE DIPSTICK NEGATIVE (NEGATIVE); URINE UROBILINOGEN 0.2 mg/dL (0.2 - 1)
[2018-01-25 17:55] LABS: BACTERIA,URINE RARE /HPF; EPITHELIAL CELLS,URINE RARE /LPF
--- NOTE | 2018-01-25 19:54 | Diagnostic Imaging Report ---
EXAM: Abdomen 3 Views INDICATION: ^Abdominal pain ^20180125 ^1913 COMPARISON: CT abdomen and pelvis 05/04/2017 FINDINGS: Minimal of stool in the colon. No dilated loops of small bowel. No renal calculi. No abnormal soft tissue masses. Metallic ear piercing overlying the lumbar spine. No degenerative changes in the lumbar spine and pelvis. IMPRESSION: No bowel dilatation or obstruction. Signed by: Dr. Liz Glasgow M.D. on 01/25/2018 7:51 PM
[2018-01-25] MEDS ORDERED: SODIUM CHLORIDE 0.9% 1000ML 1,000 ML IV SCH (20:00)
[2018-01-25] MEDS ORDERED: ONDANSETRON HCL INJ 2 MG/ML VIAL IV NR (20:00)
[2018-01-25] MEDS ORDERED: KETOROLAC TROMETHAMINE 30 MG/ML VIAL IV NR (20:00)
[2018-01-25 20:19] LABS: BASOPHILS # (AUTO) 0.1 (0.0-0.1); BASOPHILS % 0.6 % (0.0-1.0); EOSINOPHILS # (AUTO) 0.4 (0.0-0.4); EOSINOPHILS % 3.7 % (0.0-6.0); HEMATOCRIT 44.3 % (34.2-44.1); LYMPHOCYTES # (AUTO) 3.5 (1.0-3.2); LYMPHOCYTES % 32.2 % (18.0-39.1); MEAN CORPUSCULAR HEMOGLOBIN 32.3 pg (28-32); MEAN CORPUSCULAR HGB CONC 33.9 g/dL (31-35); MEAN CORPUSCULAR VOLUME 95.3 fL (81-99); MONOCYTES # (AUTO) 0.6 (0.2-0.8); MONOCYTES % 5.7 % (4.4-11.3); NEUTROPHILS # (AUTO) 6.2 (2.1-6.9); NEUTROPHILS % 57.4 % (38.7-80.0); PLATELET COUNT 238 x10e3/uL (140-360); RED BLOOD COUNT 4.65 x10e6/uL (3.6-5.1); RED CELL DISTRIBUTION WIDTH 12.2 % (11.7-14.4)
[2018-01-25 20:33] LABS: ALANINE AMINOTRANSFERASE 13 IU/L (0-55); ALBUMIN 4.5 g/dL (3.5-5.0); ALBUMIN/GLOBULIN RATIO 1.3 (0.8-2.0); ALKALINE PHOSPHATASE 83 IU/L (40-150); ANION GAP 15.5 mmol/L (8-16); BLOOD UREA NITROGEN 11 mg/dL (7-26); BUN/CREATININE RATIO 13 (6-25); CALCIUM 9.8 mg/dL (8.4-10.2); CARBON DIOXIDE 24 mmol/L (22-29); CHLORIDE 99 mmol/L (98-107); CREATININE, SERUM 0.82 mg/dL (0.57-1.11); EST GLOMERULAR FILTRATION RATE > 60 ML/MIN (60-); GLUCOSE 115 mg/dL (74-118); POTASSIUM 3.5 mmol/L (3.5-5.1); SODIUM 135 mmol/L (136-145)
--- NOTE | 2018-01-25 21:02 | Diagnostic Imaging Report ---
EXAM: CT Abdomen and Pelvis WITHOUT contrast INDICATION: ^right flank pain ^20180125 ^2009 COMPARISON: CT abdomen and pelvis 05/04/2017 and KUB 01/25/2018 TECHNIQUE: Abdomen and pelvis were scanned utilizing a multidetector helical scanner from the lung base to the pubic symphysis without administration of IV contrast. Absence of intravenous contrast decreases sensitivity for detection of focal lesions and vascular pathology. Coronal and sagittal reformations were obtained. Routine protocol was performed. IV CONTRAST: None. ORAL CONTRAST: Water RADIATION DOSE: Total DLP: 182.6 mGy*cm Estimated effective dose: (DLP x 0.015 x size factor) mSv COMPLICATIONS: None FINDINGS: LINES and TUBES: None. LOWER THORAX: Unremarkable HEPATOBILIARY: No focal hepatic lesions. No biliary ductal dilation. GALLBLADDER: No radio-opaque stones or sludge. No wall thickening. SPLEEN: No splenomegaly. PANCREAS: No focal masses or ductal dilatation. ADRENALS: No adrenal nodules KIDNEYS/URETERS: No hydronephrosis. No cystic or solid mass lesions. No stones. GI TRACT: Moderate air-filled distention of the rectum. Moderate amount of retained stool is throughout the colon without significant bowel dilatation or obstruction. The appendix is not visualized. No inflammatory changes in the right lower quadrant. PELVIC ORGANS/BLADDER: Unremarkable. LYMPH NODES: No lymphadenopathy. VESSELS: Unremarkable. PERITONEUM / RETROPERITONEUM: No free air or fluid. BONES: Nonaggressive sclerotic lesion in the sacrum likely a bone island. SOFT TISSUES: Ear piercing in the umbilicus. IMPRESSION: 1. Air-filled distention of the rectum of uncertain significance. No bowel dilatation otherwise or obstruction. 2. Moderately dense stool throughout the colon suggestive of constipation. 3. No calcified nephro ureterolithiasis. 4. Appendix not visualized. No inflammatory changes in the right lower quadrant. Signed by: Dr. Liz Glasgow M.D. on 01/25/2018 8:58 PM
[2018-01-25 21:40] VITALS: BP 115/78
== END 2018-01-25 21:45 | disposition home or self-care (01) ==
LOC: ER 16:32
DX: R10.31 Right lower quadrant pain (principal); R11.2 Nausea with vomiting, unspecified; J45.909 Unspecified asthma, uncomplicated; Z87.19 Personal history of other diseases of the digestive system; F15.90 Other stimulant use, unspecified, uncomplicated
CPT/HCPCS: 36415; 74019; 74176; 80053; 80307; 81001; 81025; 85025; 99284

== ENCOUNTER 2019-05-20 17:16 | Emergency (ER) | payer OTHER ==
[~2019-05-20] VITALS: Ht 172.7 cm; Wt 59.9 kg
[2019-05-20] MEDS ORDERED: IPRATROPIUM BROMIDE 0.02% 2.5 ML NEB NEB STA (17:29)
[2019-05-20] MEDS ORDERED: ALBUTEROL SULF 0.083% NEB SOLN 3 ML NEB NEB STA (17:29)
[2019-05-20] MEDS ORDERED: DEXAMETHASONE SOD PHOS 10 MG/1 ML VIAL IM ONE (17:30)
[2019-05-20] MEDS ORDERED: PROMETHAZINE HCL (IM) 25 MG/ML VIAL IM ONE (18:30)
[2019-05-20 18:51] VITALS: BP 100/68
--- NOTE | 2019-05-20 19:35 | Diagnostic Imaging Report ---
EXAMINATION: CHEST SINGLE (PORTABLE) INDICATION: ERMD ORDER COMPARISON: Chest x-ray dated 05/04/2017. FINDINGS: AP view TUBES and LINES: None. LUNGS/PLEURA: Lungs are well inflated. There is no evidence of pneumonia or pulmonary edema.. There is no pleural effusion or pneumothorax. HEART AND MEDIASTINUM: The cardiomediastinal silhouette is unremarkable. BONES AND SOFT TISSUES: No acute osseous lesion. Soft tissues are unremarkable. UPPER ABDOMEN: No free air under the diaphragm. IMPRESSION: No acute thoracic abnormality. Signed by: Nelson Pathak MD on 05/20/2019 7:31 PM
== END 2019-05-20 18:53 | disposition home or self-care (01) ==
LOC: ER 17:16
DX: R05 Cough (principal); J20.9 Acute bronchitis, unspecified; J45.909 Unspecified asthma, uncomplicated; F41.9 Anxiety disorder, unspecified
CPT/HCPCS: 71045; 99283; J1100; J2550